=== PATIENT | female | born 1990 | race Caucasian/White ===

== ENCOUNTER 2019-01-18 20:00 | Inpatient (IN) | payer MEDICAID ==
[~2019-01-18] VITALS: Ht 160 cm; Wt 95.2 kg
[2019-01-18 20:52] VITALS: Ht 160 cm; Wt 95.2 kg
[2019-01-18] MEDS ORDERED: LACTATED RINGER'S 1,000 ML IV PRN (20:55)
[2019-01-18] MEDS ORDERED: METHYLERGONOVINE 0.2 MG INJ IM PRN (21:00)
[2019-01-18] MEDS ORDERED: MISOPROSTOL 200 MCG TAB PR PRN (21:00)
[2019-01-18] MEDS ORDERED: CARBOPROST 250 MCG INJ IM PRN (21:00)
[2019-01-18] MEDS ORDERED: OXYTOCIN 30 UNITS/LR 500 ML IV PRN (21:00)
[2019-01-18] MEDS ORDERED: LIDOCAINE 1% (MPF) 30 ML INJ INJ PRN (21:00)
[2019-01-18] MEDS ORDERED: OXYTOCIN 30 UNITS/LR 500 ML IV SCH ×2 (21:00)
[2019-01-18] MEDS ORDERED: IBUPROFEN 600 MG TAB PO PRN (21:00)
[2019-01-18] MEDS ORDERED: BUTORPHANOL 2 MG INJ IV PRN (21:00)
[2019-01-18] MEDS ORDERED: AMPICILLIN 2 GM/NS (PMX) 100 ML IV ONE (21:00)
[2019-01-18] MEDS: LACTATED RINGER'S 1,000 ML IV SCH (21:26)
[2019-01-18] MEDS: MISOPROSTOL 50 MCG CAPSULE PO SCH (23:11)
[2019-01-19] MEDS: AMPICILLIN 1 GM/NS (PMX) 50 ML IV SCH ×4 (01:34→14:20)
[2019-01-19] MEDS: LACTATED RINGER'S 1,000 ML IV SCH ×2 (05:41→15:26)
[2019-01-19] MEDS: LEVETIRACETAM 500 MG TAB PO SCH ×3 (06:26→22:55)
[2019-01-19] MEDS: MISOPROSTOL 50 MCG CAPSULE PO SCH (07:25)
[2019-01-19] MEDS ORDERED: OXYTOCIN 30 UNITS/LR 500 ML IV SCH (10:17)
[2019-01-19 20:00] VITALS: BP 130/66; PULSE 73; RESP 18
[2019-01-19] MEDS: LACTATED RINGER'S 1,000 ML IV* SCH ×2 (20:09→22:54)
[2019-01-19] MEDS ORDERED: DIBUCAINE 1% 30 GM OINT TOP PRN (20:30)
[2019-01-19] MEDS ORDERED: CARBOPROST 250 MCG INJ IM PRN (20:30)
[2019-01-19] MEDS ORDERED: ACETAMINOPHEN 325 MG TAB PO PRN (20:30)
[2019-01-19] MEDS ORDERED: MISOPROSTOL 200 MCG TAB PR PRN (20:30)
[2019-01-19] MEDS ORDERED: OXYTOCIN 30 UNITS/LR 500 ML IV PRN (20:30)
[2019-01-19] MEDS ORDERED: HYDROCODONE/APAP (5/325) TAB PO PRN (20:30)
[2019-01-19] MEDS ORDERED: BENZOCAINE 20% 56 ML SPRAY TOP PRN (20:30)
[2019-01-19] MEDS ORDERED: METHYLERGONOVINE 0.2 MG INJ IM PRN (20:30)
[2019-01-19] MEDS ORDERED: WITCH HAZEL/GLYCERIN PAD PR PRN (20:30)
[2019-01-19] MEDS: SENNA/DOCUSATE NA (8.6MG/50MG) TAB PO SCH (21:08)
[2019-01-20 00:10] VITALS: BP 128/60; PULSE 70; RESP 18
[2019-01-20 02:34] VITALS: BP 107/58; PULSE 76; RESP 18
[2019-01-20] MEDS: IBUPROFEN 600 MG TAB PO SCH ×5 (06:00→23:47)
[2019-01-20 08:15] VITALS: BP 101/54; PULSE 67; RESP 18
[2019-01-20] MEDS: SENNA/DOCUSATE NA (8.6MG/50MG) TAB PO SCH ×2 (08:38→21:02)
[2019-01-20] MEDS: LEVETIRACETAM 500 MG TAB PO SCH ×2 (08:38→21:02)
[2019-01-20] MEDS: LACTATED RINGER'S 1,000 ML IV* SCH (12:09)
[2019-01-20] MEDS ORDERED: GUAIFENESIN/DM 5ML CUP PO PRN (16:30)
[2019-01-20 16:41] VITALS: BP 110/55
[2019-01-20 20:05] VITALS: BP 127/67; PULSE 86; RESP 18
[2019-01-21 03:49] VITALS: BP 108/53; PULSE 71; RESP 17
[2019-01-21] MEDS: IBUPROFEN 600 MG TAB PO SCH ×2 (05:40→11:29)
[2019-01-21 08:00] VITALS: BP 99/54; PULSE 68; RESP 16
[2019-01-21] MEDS: LEVETIRACETAM 500 MG TAB PO SCH (08:54)
[2019-01-21] MEDS: SENNA/DOCUSATE NA (8.6MG/50MG) TAB PO SCH (08:54)
[2019-01-21] MEDS ORDERED: DIPHTH/TET/ACEL PERTUSS (ADULT) 0.5 ML VIAL IM* ONE (09:00)
== END 2019-01-21 15:08 | disposition home or self-care (01) | DRG 807 ==
LOC: L-D 20:30 → PP1 01-19 20:04
PROVIDERS: ADMIT Obstetrics & Gynecology; ATTEND Obstetrics & Gynecology
PROC: 3E0D7GC Introduction of Other Therapeutic Substance into Mouth and Pharynx, Via Natural or Artificial Opening (ICD-10-PCS; 2019-01-18)
PROC: 10E0XZZ Delivery of Products of Conception, External Approach (ICD-10-PCS; principal; 2019-01-19)
PROC: 0UQGXZZ Repair Vagina, External Approach (ICD-10-PCS; 2019-01-19)
DX: O99.354 Diseases of the nervous system complicating childbirth (principal); Z37.0 Single live birth; O71.4 Obstetric high vaginal laceration alone; Z3A.38 38 weeks gestation of pregnancy; G40.909 Epilepsy, unspecified, not intractable, without status epilepticus
CPT/HCPCS: 76815; 85025; 85610; 85730; 86592; 86850; 86900; 86901; 87340; 90715; J0290; J2590; J7120